=== PATIENT | female | born 1965 | race American Indian/Alaskan Native ===

== ENCOUNTER 2021-01-04 12:46 | Outpatient (CLI) | payer OTHER ==
--- NOTE | 2021-01-04 16:58 | Magnetic Resonance Report ---
Bilateral breast MRI with and without contrast. History: New diagnosis left breast cancer Procedure: Axial T1 and T2-weighted fat-sat images were obtained precontrast. 16 cc Clariscan was in jected intravenously and serial axial T1-weighted images with fat saturation were obtained postcontra st. 3-D MIP projections, Kinetic analysis and subtraction imaging was utilized to evaluate. A [employer] 8 channel breast coil was utilized for image acquisition. Comparison: None Findings: Background level of enhancement is mild. No suspicious axillary or clavicular nodes are identified. No abnormal bone marrow signal is seen. No significant chest wall enhancement is noted. Right breast: Mild stippled enhancement is noted. In the upper lateral aspect of the right breast, mi d depth, approximately 8.6 cm from the nipple, 5.3 cm from the chest wall, and 1.4 cm from the latera l skin surface, a 6 mm irregular enhancing nodule is seen. This shows mild increased signal on T2-ivanna ghted imaging. No other significant left breast abnormalities are seen. Left breast: In the mid to posterior depth of the left breast upper outer quadrant the known area of malignancy with biopsy changes is seen. A spiculated abnormally enhancing 14 mm lesion is seen. This is approximately 13 mm from the lateral skin surface, 3.2 cm from the chest wall, and roughly 10 cm f rom the nipple. At approximately 1:30, 3.2 cm anterior to the known lesion in the lateral mid breast upper quadrant t here are 2 adjacent areas of enhancement. The more posterior and larger the 2 measures 6 mm and shows heterogenous kinetics. A tiny focus of enhancement is seen approximately 3 mm directly anterior to t his nodule. The larger of the lies 6.6 cm from the chest wall, 1.6 cm from the lateral skin surface, and roughly 8 cm from the nipple. No other significant right breast lesions are seen. What is probably a tiny intramammary node is seen laterally. Impression: 1. Known area of malignancy is seen on the left with biopsy changes and evidence of residual neoplasi a 2. In the same quadrant but by approximate 3 cm, another area of suspicious enhancement is seen with a tiny adjacent focus as described. If breast conservation surgery is anticipated, targeted ultrasound of this area is suggested to search for possible lesion for biopsy. 3. Indeterminate enhancing nodule in the right breast. Recommend targeted ultrasound. BIRADS: 0: Incomplete - needs additional imaging evaluation Signer Name: Neftaly Martin MD Signed: 01/04/2021 4:54 PM Workstation Name: [id number]
== END 2021-01-04 12:47 | disposition home or self-care (01) ==
LOC: SPVIMAG 12:46
PROVIDERS: ATTEND Surgery
DX: C50.412 Malignant neoplasm of upper-outer quadrant of left female breast (principal); N63.21 Unspecified lump in the left breast, upper outer quadrant; N63.10 Unspecified lump in the right breast, unspecified quadrant
CPT/HCPCS: A9575; C8908; 77049

== ENCOUNTER 2021-02-15 12:43 | Outpatient (CLI) | payer OTHER ==
--- NOTE | 2021-02-15 14:22 | Ultrasound Report ---
LEFT BREAST ULTRASOUND INDICATION: Known biopsy-proven malignancy in the left breast, abnormal findings noted elsewhere in t he left breast. COMPARISON: 01/04/2021. FINDINGS: A targeted ultrasound of the left upper outer breast was performed to evaluate the site of a focal area of abnormal enhancement noted on the recent breast MRI. The left upper outer breast was scanned by both the utilities equipment repairer and Dr. Gates. No suspicious solid or cystic lesion is identified. No s onographic correlate to the abnormal enhancement noted on a breast MRI. IMPRESSION: No sonographic correlate to abnormal enhancement noted in the left upper outer breast on recent MRI. An MRI guided biopsy is recommended. These findings and recommendations were discussed with the patient at the conclusion of the exam. BI-RADS Category 4: Suspicious for Malignancy. Signer Name: Eze Gates MD Signed: 02/15/2021 2:18 PM Workstation Name: [id number]
--- NOTE | 2021-02-15 14:36 | Mammography Report ---
RIGHT DIAGNOSTIC MAMMOGRAM INDICATION: Status post right breast 10:00 ultrasound guided core biopsy. COMPARISON: 01/04/2021. FINDINGS: Right breast CC and LM projection mammograms document a U-shaped biopsy marker in the right breast at the 10:00 position. This documents the location of an ultrasound-guided core biopsy. The b iopsy marker appears in the appropriate position, although a mammographic correlate was never identif ied. IMPRESSION: Right breast mammographic images documenting location of a U-shaped biopsy marker (site of ultrasound guided core biopsy at the 10:00 position). BI-RADS Category 4: Suspicious for Malignancy. Signer Name: Eze Gates MD Signed: 02/15/2021 2:32 PM Workstation Name: [id number]
--- NOTE | 2021-02-15 14:39 | Ultrasound Report ---
ULTRASOUND-GUIDED CORE NEEDLE BIOPSY Right BREAST WITH CLIP PLACEMENT INDICATION: Abnormal enhancement noted in the right upper outer breast on recent breast MRI. FINDINGS: A targeted ultrasound of the right upper outer breast was performed. There is an 8 x 3 x 6 mm partial ly circumscribed oval hypoechoic lesion at the 10:00 position, 8 cm from the nipple. This would appea r to correspond with the area of abnormal enhancement noted on MRI performed 01/04/2021. Informed consent was obtained. The lesion within the right breast at the 10:00 position, 8 cm from th e nipple, was identified with ultrasound. The overlying skin was cleansed with chloro prep and local anesthesia was obtained with a 1% lidocaine solution. Under ultrasound guidance a 14-gauge [employer] core biopsy needle was advanced to the lesion. A total of 4 core samples were obtained. A U-shape d biopsy marker was placed to corinne the site of the biopsy. Specimen samples were placed in formalin a nd sent to pathology for analysis. Patient tolerated the procedure well and no immediate complications were identified. IMPRESSION: Technically successful ultrasound-guided core biopsy of right breast lesion at the 10:00 position wit h placement of a U-shaped biopsy marker. An addendum will be added to this report once pathology results are available. Signer Name: Eze Gates MD Signed: 02/15/2021 2:35 PM Workstation Name: [id number]
== END 2021-02-15 12:44 | disposition home or self-care (01) ==
LOC: SPVWC 12:43
PROVIDERS: ATTEND Surgery
DX: N63.11 Unspecified lump in the right breast, upper outer quadrant (principal); R92.2 Inconclusive mammogram; N60.81 Other benign mammary dysplasias of right breast; N64.89 Other specified disorders of breast
CPT/HCPCS: 88305

== ENCOUNTER 2021-03-01 12:40 | Outpatient (CLI) | payer OTHER ==
--- NOTE | 2021-03-01 15:08 | Magnetic Resonance Report ---
MRI GUIDED LEFT BREAST BIOPSY, 03/01/2021 CLINICAL INFORMATION / INDICATION: Patient with recently diagnosed left breast carcinoma with abnorma l findings seen just anterior to the carcinoma on recent MRI.. COMPARISON: Recent breast MRI for 03/20/2021 PROCEDURE: Risks, benefits, and indications to the procedure were discussed with the patient in detail, includin g bleeding, infection, hematoma formation, and inadequate tissue sampling. The patient agreed to proc eed with both verbal and written consent. A timeout procedure was performed with two patient identifi ers. The patient was placed in the prone position in the MRI suite and localizer imaging was obtained usin g an 8 channel breast coil. Sagittal pre and post gadolinium fat-saturated sequences were obtained. The targeted area of interest was then identified and coordinates were determined. The breast was myra ansed and prepped in the usual sterile fashion. Lidocaine 1% with and without epinephrine was used fo r local anesthesia. A 9 gauge introducer sheath and stylette was then advanced to the appropriate pos ition from the lateral approach. The stylette was replaced with an obturator. Subsequent sagittal se quences were obtained to confirm satisfactory positioning of the sheath. Multiple vacuum-assisted 9 g auge core samples were obtained in a round the clock fashion with an [employer] biopsy device. Post-biopsy images confirm satisfactory tissue sampling. A biopsy clip was then deployed at the biopsy site and s dominique was removed. Hemostasis achieved with manual pressure. A sterile pressure dressing was applied to the skin. Post-biopsy mammogram was obtained. The patient tolerated the procedure without difficulty. A small hematoma is noted at the biopsy site. No other complications were encountered. Post-biopsy instructions were discussed with the patient and given in writing. IMPRESSION: 1. Technically successful MRI guided left breast biopsy. A small enhancing mass 3 cm anterior to the biopsy-proven malignancy in the upper outer quadrant of the left breast was targeted for biopsy. Biopsy results are pending and will be reported in an addendum. Signer Name: Lisa Colindres MD Signed: 03/01/2021 3:03 PM Workstation Name: [id number]
--- NOTE | 2021-03-01 15:11 | Mammography Report ---
DIGITAL DIAGNOSTIC MAMMOGRAM WITH CAD , 03/01/2021 CLINICAL INFORMATION / INDICATION: Postprocedure mammogram following left breast MRI guided biopsy TECHNIQUE: Digital left mammographic imaging was performed. This examination was interpreted with the benefit of Computer-aided Detection analysis. COMPARISON: Recent MRI 01/04/2021, recent left mammogram 02/15/2021, and MRI guided biopsy performed ear lier today. FINDINGS: Breast Density: There are scattered areas of fibroglandular density. Approximately 3-3.5 cm anteriorly to the biopsy-proven carcinoma in the upper outer quadrant of the l eft breast, there is a biopsy clip present consistent with the small biopsied mass performed earlier today using MRI guidance. This correlates with abnormal enhancement seen on recent MRI exam. IMPRESSION: Technically successful left breast MRI guided biopsy with biopsy clip in the expected loc ation mammographically. Follow up recommendation: Awaiting pathology results. Post biopsy imaging. A "normal" or negative report should not discourage follow up or biopsy of a clinically significant f inding. A written summary of these findings will be mailed to the patient. The patient will be entered into a mammography reporting system which will generate a reminder letter for the patient's next appointmen t at the appropriate interval. According to the [employer], yearly mammograms are recommended starting at age 40 and continuing as long as a woman is in good health. Breast MRI is recommended for women with an mamie roximately 20-25% or greater lifetime risk of breast cancer, including women with a strong family his tory of breast or ovarian cancer and women who have been treated for Hodgkin's disease. Signer Name: Lisa Colindres MD Signed: 03/01/2021 3:06 PM Workstation Name: [id number]
== END 2021-03-01 12:41 | disposition home or self-care (01) ==
LOC: SPVIMAG 12:40
PROVIDERS: ATTEND Surgery
DX: C50.412 Malignant neoplasm of upper-outer quadrant of left female breast (principal); R92.8 Other abnormal and inconclusive findings on diagnostic imaging of breast; N64.89 Other specified disorders of breast; Z17.0 Estrogen receptor positive status [ER+]
CPT/HCPCS: 19085; 77065; 88305; A4648; A9575; 88341; 88342

== ENCOUNTER 2021-03-23 07:00 | Day surgery (SDC) | payer OTHER ==
[2021-03-16 13:16] LABS: Hematocrit 37.9 % (30.3-42.9); Hemoglobin 13.2 gm/dl (10.1-14.3); Mean Corpuscular HGB Conc 35 % (30-34); Mean Corpuscular Volume 86 fl (79-97); Platelet Count 203 K/mm3 (140-440); Red Blood Count 4.43 M/mm3 (3.65-5.03); Red Cell Distribution Width 13.5 % (13.2-15.2)
[~2021-03-23 07:00] MED LIST: ACETAMINOPHEN 500 MG TAB PO SCH; BACITRACIN ZINC OINT 28.4 GM TP ONE; CELECOXIB 200 MG CAP PO NR; GABAPENTIN 300 MG CAP PO NR; LACTATED RINGERS 1,000 ML IV SCH; MIDAZOLAM 2 MG/2 ML INJ IV NR; SCOPOLAMINE TRANSDERMAL PATCH 72 HR TD NR; WATER FOR IRRIG STERILE 1,500 ML BOTTLE IR ONE; ceFAZolin/STERILE WATER 2 GM/20 ML SYRINGE IV NR; fentaNYL 100 MCG/2 ML INJ IV PRN
[2021-03-23] MEDS ORDERED: LIDOCAINE (1%) 10 MG/1 ML VIAL 20 ML MDV ONE ×2 (07:50→08:50)
[2021-03-23] MEDS ORDERED: BUPIVACAINE/PF (0.5%) 5 MG/1 ML 30 ML VIAL INFILTRATI ONE (08:50)
[2021-03-23] MEDS ORDERED: dexAMETHasone 4 MG/ML VIAL ONE (08:50)
[2021-03-23] MEDS ORDERED: HYDROmorphone 1 MG/1 ML INJ IV PRN (08:53)
--- NOTE | 2021-03-23 08:53 | Anesthesia Day of Surgery ---
Anesthesia Day of Surgery - Day of Surgery Patient Examined: Yes Patient H&P Reviewed: Yes Patient is NPO: Yes
--- NOTE | 2021-03-23 08:53 | Anesthesia Consultation ---
Anesthesia Consult and Med Hx Date of service: 03/23/21 - Airway Anesthetic Teeth Evaluation: Good ROM Head & Neck: Adequate Mental/Hyoid Distance: Adequate Mallampati Class: Class II Intubation Access Assessment: Probably Good - Pre-Operative Health Status ASA Pre-Surgery Classification: ASA2 Proposed Anesthetic Plan: General Nerve Block: PECS II - Pulmonary Hx Smoking: No Hx Respiratory Symptoms: No - Cardiovascular System Hx Hypertension: Yes Hx Heart Attack/AMI: No - Central Nervous System CVA: No - Endocrine Hx Renal Disease: No Hx Liver Disease: No Hx Insulin Dependent Diabetes: No Hx Non-Insulin Dependent Diabetes: No Hx Thyroid Disease: No - Other Systems Hx Cancer: Yes (breast ca) - Additional Comments Anesthesia Medical History Comments: No hx anesthetic complications.
[2021-03-23] MEDS ORDERED: ONDANSETRON 4 MG/2 ML INJ IV PRN (09:00)
[2021-03-23] MEDS ORDERED: propofoL 200 MG/20 ML VIAL IV ONE (09:29)
[2021-03-23] MEDS ORDERED: fentaNYL 100 MCG/2 ML INJ ONE (09:29)
[2021-03-23] MEDS ORDERED: HYDROcodone/ACETAMINOPHEN 5-325 MG TAB PO PRN (09:30)
[2021-03-23] MEDS ORDERED: LIDOCAINE MPF (2%) 20 MG/1 ML VIAL 5 ML ONE (10:25)
[2021-03-23] MEDS ORDERED: ePHEDrine SULFATE 50 MG/1 ML INJ ONE (11:19)
[2021-03-23] MEDS ORDERED: KETOROLAC 30 MG/1 ML INJ ONE (11:22)
[2021-03-23] MEDS ORDERED: dexAMETHasone 20 MG/5 ML VIAL ONE (11:23)
[2021-03-23] MEDS ORDERED: ONDANSETRON 4 MG/2 ML INJ ONE (11:23)
[2021-03-23] MEDS ORDERED: BACITRACIN ZINC OINT 28.4 GM TP ONE ×2 (11:49→13:54)
[2021-03-23] MEDS ORDERED: WATER FOR IRRIG STERILE 1,500 ML BOTTLE IR ONE (11:49)
--- NOTE | 2021-03-23 14:29 | Operative Report ---
Operative Report Operative Report: Operative Report: March 23, 2021 Preoperative diagnosis: Left breast cancer of the upper outer quadrant Postoperative diagnosis: Same Procedure: Left breast needle localization partial mastectomy of the upper outer quadrant with SLNB Surgeon: Tesha Lopez MD [employer] Equipment Repairer: Adonay Webber MD Anesthesia: General Findings:Left wires and clips present within radiograph specimen; x3 SLNs; axillary lipoma Complications: None EBL: Less than 50 cc, minimal Disposition: PACU in good condition Indications for operative procedure: This is a 56 year old lady with newly diagnosed left breast cancer of the upper outer quadrant, ILCA grade 1, Stage IA [id number] ER/NJ positive (1:30 position 7 cm FN and additional area more lateral). Patient wished to proceed with breast conservation. Radiology to place wires at location of cancer-bracket area of known malignancy. Second area of malignancy found on breast MRI with lesion more lateral. She understands the role of adjuvant radiation therapy and Oncotype DX will be obtained by medical oncology. Patient understeands if margsins are positive, additional surgery will be indicated and mastectomy may be recommended. Patient with known multifocal left breast cancer of the upper outer quadrant. She wished to proceed with the above procedure. Procedure in detail: The patient was taken to radiology for wire placement for localization known area of cancers. Anesthesia placed left pectoral block. Patient was then taken to the operating room. Gen. anesthesia was administered. The left nipple was injected with radioisotope. Left breast and axilla were prepped and draped in the normal sterile operative fashion. The wires were identified. Timeout was performed. Gamma probe was inserted into the axilla. The area of hot spot was identified. A left axillary incision was made with a 15 blade knife with dissection taken down to the subcutaneous tissues. The axillary fascia was opened with the Bovie cautery. 3 SLNs were identified and dissected free. All remaining counts were less than 10% of the highest count. Lymph nodes were sent to pathology for permanent processing. Axillary lipoma was present as well and resected and sent to pathology separately. Hemostasis was obtained in the left axillary cavity. Axillary cavity was appropriately irrigated and suctioned. Hemostasis was noted. Axillary fascia was approximated and closed using interrupted 3-0 Vicryl and the skin brought together and closed using a running 4-0 Monocryl followed by skin affix. Attention was then taken towards the left breast. Ultrasound used as well with findings of known breast cancer around 1:30 position 7 cm FN and second wire present more laterally around the 2:00 position. A periareolar breast incision around 1:00 position was made with a 15 blade knife and dissection taken down to subcutaneous tissues. First began raising of the superior flap with removal of the wires from the skin with dissection taken superiorly past the area of known maglignancy and then taken down to the pectoralis muscle, followed by raising of the inferior flap, medial flap and lateral flap with all flaps taken past the area of known malignancy and then posteriorly down to the pectoralis muscle. The breast area of concern was appropriately removed posteriorly from the pectoralis muscle with the aid of the Bovie cautery. Fibrosis was noted more medially and initially upon raising of the medial flap, breast tissue more medially was then revised and incorporated into the lumpectomy to ensure an attempt to obtain negative margins. The wires were not encountered. Specimen was marked and then sent to pathology and radiology; radiograph specimen with wires and clips present with adequate appearing margins. Breast cavity was irrigated and hemostasis was obtained. Then proceeded with complex closure. The posterior deep breast tissues were then mobilized. The posterior deep breast tissues were approximated and closed using interrupted 3-0 Vicryl. The subcutaneous tissues were then approximated and closed using interrupted 3-0 Vicryl followed by closing of the skin with a running 4-0 Monocryl and skin affix. The patient tolerated surgery very well and she was awaken from anesthesia without any complication and transported to PACU in good condition.
--- NOTE | 2021-03-23 14:30 | Short Stay Summary ---
Short Stay Documentation Date of service: 03/23/21 - History H&P: obtained from office - Allergies and Medications Current Medications: Allergies No Known Allergies Allergy (Verified 03/09/21 16:42) Home Medications Medication Instructions Recorded Confirmed Last Taken Type Lisinopril [Zestril] 5 mg PO DAILY 03/09/21 03/09/21 Unknown History oxyCODONE /ACETAMINOPHEN [Percocet 1 tab PO Q6HR PRN #12 tablet 03/23/21 Unknow n Rx 5/325] Active Medications Acetaminophen (Acetaminophen 500 Mg Tab) 1,000 mg PO PREOP DRAGAN Hydrocodone Bitart/Acetaminophen (Hydrocodone/Acetaminophen 5-325 Mg Tab) 2 each PO ONCE PRN PRN Reason: Pain, Moderate (4-6) Cefazolin Sodium (Cefazolin/Sterile Water 2 Gm/20 Ml Syringe) 2 gm IV PREOP NR Stop: 03/23/21 23:01 Celecoxib (Celecoxib 200 Mg Cap) 200 mg PO PREOP NR Stop: 03/24/21 05:59 Fentanyl (Fentanyl 100 Mcg/2 Ml Inj) 100 mcg IV ONCE PRN PRN Reason: sedation for nerve block Gabapentin (Gabapentin 300 Mg Cap) 300 mg PO PREOP NR Stop: 03/24/21 05:59 Hydromorphone HCl (Hydromorphone 1 Mg/1 Ml Inj) 0.5 mg IV Q10MIN PRN PRN Reason: Pain , Severe (7-10) Stop: 03/23/21 23:00 Lactated Ringer's (Lactated Ringers) 1,000 mls @ 100 mls/hr IV DIRECT DRAGAN Stop: 03/23/21 23:59 Midazolam HCl (Midazolam 2 Mg/2 Ml Inj) 2 mg IV PREOP NR Stop: 03/24/21 05:59 Ondansetron HCl (Ondansetron 4 Mg/2 Ml Inj) 4 mg IV ONCE PRN PRN Reason: Nausea And Vomiting Stop: 03/23/21 16:00 Scopolamine (Scopolamine Transdermal Patch 72 Hr) 1 each TD PREOP NR Stop: 03/24/21 05:59 - Brief post op/procedure progress note Date of procedure: 03/23/21 Pre-op diagnosis: Multifocal left breast cancer UOQ Post-op diagnosis: same Procedure: Left partial mastectomy with SLNB Anesthesia: GETA Findings: x3 slns; clips and wires present Surgeon: NATANAEL PAGE Estimated blood loss: minimal Pathology: list Specimen disposition: to lab Condition: stable - Disposition Condition at discharge: Good Disposition: DC-01 TO HOME OR SELFCARE Short Stay Discharge Plan Activity: other (no heavy lifting) Diet: regular Wound: keep clean and dry (may shower in 48 hours; no baths, pools or lakes; apply bacitracin twice daily to incision; wear breast binder) Follow up with: NATANAEL PAGE MD [Staff Physician] - 7 Days Prescriptions: oxyCODONE /ACETAMINOPHEN [Percocet 5/325] 1 tab PO Q6HR PRN #12 tablet PRN Reason: Pain
[2021-03-23 15:09] VITALS: BP 147/81
[2021-03-23] MEDS ORDERED: oxyCODONE /ACETAMINOPHEN 5-325MG TAB PO PRN (15:09)
--- NOTE | 2021-03-23 16:18 | Post Anesthesia Evaluation ---
- Post Anesthesia Evaluation Patient Participated: Yes Airway Patent: Yes Stable Respiratory Function: Yes Nausea/Vomiting: No Temp > 96.8F: Yes Pain Manageable: Yes Adequeate Hydration: Yes Anesthesia Complications: No
== END 2021-03-23 16:05 | disposition home or self-care (01) ==
LOC: OR 07:00
PROVIDERS: ATTEND Surgery
DX: C50.412 Malignant neoplasm of upper-outer quadrant of left female breast (principal); Z20.822 Contact with and (suspected) exposure to COVID-19; I10 Essential (primary) hypertension; Z72.89 Other problems related to lifestyle; Z98.890 Other specified postprocedural states; Z79.899 Other long term (current) drug therapy; Z80.3 Family history of malignant neoplasm of breast; Z80.8 Family history of malignant neoplasm of other organs or systems; Z80.0 Family history of malignant neoplasm of digestive organs
CPT/HCPCS: 19281; 19282; 19301; 36415; 38525; 38792; 64450; 76098; 78800; 85027; 88304; 88307; 88341; 88342; A4648; A9541; J0690; J1100; J1885; J2250; J2405; J2704; J3010; J7120; U0003; 88333